=== PATIENT | female | born 1950 | race Caucasian/White ===

== ENCOUNTER 2016-08-11 01:47 | Inpatient (IN) | payer OTHER ==
[~2016-08-11] VITALS: Ht 167.6 cm; Wt 87.5 kg
--- NOTE | 2016-08-11 02:00 | NUR ---
PATIENT WALKED INTO ER C/O RIGHT BREAST PAIN AND REDNESS THAT STARTED 2300 YESTERDAY.
[2016-08-11] MEDS ORDERED: IRBE150T30 PO (02:07)
[2016-08-11] MEDS ORDERED: DULA1.5P SQ (02:07)
[2016-08-11] MEDS ORDERED: INSU100V7 SQ (02:07)
[2016-08-11] MEDS ORDERED: ATOR10TA33 PO (02:07)
[2016-08-11] MEDS ORDERED: METO50TA7 PO (02:07)
[2016-08-11] MEDS ORDERED: LETR2.5T7 PO (02:07)
[2016-08-11] MEDS ORDERED: METF500T4 PO (02:07)
[2016-08-11] MEDS ORDERED: VANCOMYCIN IV 1,000 MG in IV DEXTROSE 5% 250 ML IV ONE (02:30)
[2016-08-11 02:41] LABS: BASOPHILS % (AUTO) 0.4 % (0.0-2.0); EOSINOPHILS # (AUTO) 0.1 K/uL (0.0-0.7); EOSINOPHILS % (AUTO) 1.2 % (0.0-7.0); HEMATOCRIT 37.8 % (37-47); HEMOGLOBIN 12.9 G/DL (12.0-16.0); LYMPHOCYTES # (AUTO) 0.6 K/UL (0.8-4.8); LYMPHOCYTES % (AUTO) 5.4 % (20.5-51.5); MEAN CORPUSCULAR HEMOGLOBIN 28.5 UUG (27.0-31.0); MEAN CORPUSCULAR HGB CONC 34 g/dL (32.0-37.0); MEAN CORPUSCULAR VOLUME 83.8 FL (81.0-99.0); MONOCYTES # (AUTO) 0.7 K/UL (0.1-1.30); MONOCYTES % (AUTO) 5.9 % (0.0-11.0); NEUTROPHILS # (AUTO) 9.7 K/UL (1.8-8.9); NEUTROPHILS % (AUTO) 87.1 % (38.5-71.5); PLATELET COUNT (AUTO) 191 K/UL (150-450); RED BLOOD CELL COUNT(AUTO) 4.51 MIL/UL (4.2-5.4); WHITE BLOOD COUNT (AUTO) 11.1 K/UL (4.0-11.2)
[2016-08-11 02:47] LABS: BILIRUBIN,DIRECT 0.2 mg/dL (0.0-0.2); BILIRUBIN,TOTAL 0.9 mg/dL (0.2-1.0); CREATININE 0.8 mg/dL (0.6-1.3); POTASSIUM 3.7 mmol/L (3.5-5.1); TOTAL PROTEIN, SERUM 7.1 g/dL (6.4-8.2)
[2016-08-11] MEDS ORDERED: VANCOMYCIN IV 200 ML ONE (02:48)
--- NOTE | 2016-08-11 04:00 | NUR ---
PATIENT SLEEPING WITH NO DISTRESS NOTED
[2016-08-11] MEDS ORDERED: MAGNESIUM HYDROXIDE 30 ML LIQUID UDC PO PRN (04:15)
[2016-08-11] MEDS ORDERED: TEMAZEPAM 7.5 MG CAPSULE PO PRN (04:15)
[2016-08-11] MEDS ORDERED: ONDANSETRON 4 MG/2 ML VIAL IV PRN (04:15)
[2016-08-11] MEDS ORDERED: MORPHINE SULFATE 2 MG/1 ML DISP.SYRIN IV PRN (04:15)
[2016-08-11] MEDS ORDERED: HYDROCODONE/APAP 5-325MG TABLET PO PRN (04:15)
[2016-08-11] MEDS ORDERED: DEXTROSE 50% 50 ML DISP.SYRIN IV PRN (04:30)
[2016-08-11] MEDS ORDERED: INSULIN REGULAR, HUMAN 300 UNITS/3 ML VIAL SQ PRN (04:30)
[2016-08-11 05:20] VITALS: BP 138/77
--- NOTE | 2016-08-11 05:20 | NUR ---
TRANSFERED TO 2ND FLOOR VIA WHEELCHAIR
[2016-08-11] MEDS: BLOOD SUGAR DIAGNOSTIC 1 EACH STRIP VI SCH ×4 (07:30→20:37)
--- NOTE | 2016-08-11 08:00 | NUR ---
Received this admission from previous shift, with the chief complaint of right breast redness, diagnosis of cellulitis right breast. Awake, alert, oriented x 4, able to move all extremities. Noted redness and warm of right breast. IVF started on right forearm.
[2016-08-11] MEDS: PANTOPRAZOLE SODIUM 40 MG TABLET.DR PO SCH (08:47)
[2016-08-11] MEDS: METFORMIN HCL 500 MG TABLET PO SCH ×2 (08:48→17:27)
[2016-08-11] MEDS: METOPROLOL SUCCINATE XL 50 MG TAB.SR.24H PO SCH (08:49)
[2016-08-11] MEDS: IV NS 1000 ML 1,000 ML IV PRN (08:49)
[2016-08-11] MEDS: ACETAMINOPHEN 325 MG TABLET PO PRN (08:59)
[2016-08-11] MEDS ORDERED: LETROZOLE 2.5 MG PO SCH (09:00)
[2016-08-11] MEDS: INSULIN REGULAR, HUMAN 300 UNIT/3 ML VIAL SQ PRN ×2 (09:05→12:32)
[2016-08-11] MEDS: VANCOMYCIN IV 1,250 MG in IV DEXTROSE 5% 500 ML IV SCH ×2 (09:07→22:00)
[2016-08-11 11:40] VITALS: BP 124/77
--- NOTE | 2016-08-11 12:00 | NUR ---
Blood sugar 162, Insulin sliding scale given as ordered.
[2016-08-11] MEDS: LETROZOLE 2.5 MG PO SCH (15:29)
[2016-08-11] MEDS: IRBESARTAN 150 MG PO SCH (15:29)
--- NOTE | 2016-08-11 15:34 | NUR ---
lactic acid 2.3, Susan [employer] informed with orders. Levaquin IV started
--- NOTE | 2016-08-11 15:55 | NUR ---
Clinical Pharmacy Note: Vancomycin Pharmacy to Dose Subjective: To start vancomycin in this 66 yr old female for indication of cellulitis Objective: weight 87kg height 167cm BUN 12Scr 0.8Wbc 11.1Temp 98.7 Received one dose of 1gm at 0251 on 08/11 overnight Assessment/Plan As renal function is ok, will start scheduled dose of vancomycin 1250mg q14hr, expected trough 16.49. Will draw trough before 4th scheduled dose (not ordered yet). Will monitor renal function and adjust if were to change, will continue to monitor
[2016-08-11] MEDS: LEVOFLOXACIN 500 MG/D5W 500 MG in PREMIXED 1 EACH IV SCH (16:05)
[2016-08-11 16:09] VITALS: BP 138/75
--- NOTE | 2016-08-11 17:42 | NUR ---
Dr. Gustafson for ID seen and examined patient. Right breast redness marked with pen. photos taken
[2016-08-11 20:00] VITALS: BP 127/74
[2016-08-11] MEDS: ATORVASTATIN 10 MG TABLET PO SCH (20:37)
[2016-08-11] MEDS: INSULIN DETEMIR 300 UNIT/3 ML CARTRIDGE SQ SCH (20:38)
[2016-08-11] MEDS ORDERED: INSULIN GLARGINE,HUM 300 UNITS/3 ML CARTRIDGE SQ SCH (21:00)
[2016-08-12] MEDS: IV NS 1000 ML 1,000 ML IV PRN ×2 (01:40→11:27)
--- NOTE | 2016-08-12 03:00 | NUR ---
Right forearm IV line infiltrated. Placed a new line in her left hand w/ [id number]. IVF maintained.
[2016-08-12 04:55] VITALS: BP 121/66
[2016-08-12] MEDS: PANTOPRAZOLE SODIUM 40 MG TABLET.DR PO SCH (05:48)
[2016-08-12] MEDS: BLOOD SUGAR DIAGNOSTIC 1 EACH STRIP VI SCH ×4 (05:48→20:54)
--- NOTE | 2016-08-12 06:11 | NUR ---
Redness on breast site slightly fading. Denies pain or itchinedd. Fairly rested, no acutre resp distress. Assisted w/ all needs.
[2016-08-12 06:55] LABS: BASOPHILS % (AUTO) 0.5 % (0.0-2.0); EOSINOPHILS # (AUTO) 0.1 K/uL (0.0-0.7); EOSINOPHILS % (AUTO) 3.1 % (0.0-7.0); HEMOGLOBIN 11.6 G/DL (12.0-16.0); LYMPHOCYTES # (AUTO) 0.9 K/UL (0.8-4.8); MEAN CORPUSCULAR HEMOGLOBIN 29.4 UUG (27.0-31.0); MEAN CORPUSCULAR HGB CONC 35 g/dL (32.0-37.0); MEAN CORPUSCULAR VOLUME 83.9 FL (81.0-99.0); MONOCYTES # (AUTO) 0.5 K/UL (0.1-1.30); MONOCYTES % (AUTO) 10.1 % (0.0-11.0); NEUTROPHILS # (AUTO) 3.2 K/UL (1.8-8.9); NEUTROPHILS % (AUTO) 66.3 % (38.5-71.5); PLATELET COUNT (AUTO) 164 K/UL (150-450)
[2016-08-12 07:07] LABS: BILIRUBIN,TOTAL 1.2 mg/dL (0.2-1.0); CREATININE 0.7 mg/dL (0.6-1.3); PHOSPHOROUS 3.5 mg/dL (2.5-4.9); POTASSIUM 3.7 mmol/L (3.5-5.1); TOTAL PROTEIN, SERUM 6.6 g/dL (6.4-8.2)
[2016-08-12 07:11] LABS: THYROID STIMULATING HORMONE 1.765 mIU/mL (0.358-3.740)
[2016-08-12 07:20] LABS: MAGNESIUM 1.2 mg/dL (1.8-2.4)
[2016-08-12 07:24] LABS: RED BLOOD CELL COUNT(AUTO) 3.95 MIL/UL (4.2-5.4); WHITE BLOOD COUNT (AUTO) 4.8 K/UL (4.0-11.2)
[2016-08-12 07:25] LABS: HEMATOCRIT 33.1 % (37-47)
--- NOTE | 2016-08-12 08:00 | NUR ---
AWAKE ALERT COOPERATE WELL NO SOB OR PAIN EAT BREAKFAST MOD AMT CONTINUE IVF RESTING QUIET WITH CALL LIGHT IN REACH AND INSTRUCTION TO CALL WHEN NEED
[2016-08-12] MEDS: METFORMIN HCL 500 MG TABLET PO SCH (08:21)
[2016-08-12] MEDS: METOPROLOL SUCCINATE XL 50 MG TAB.SR.24H PO SCH (08:21)
[2016-08-12] MEDS: LETROZOLE 2.5 MG PO SCH (08:21)
[2016-08-12] MEDS: IRBESARTAN 150 MG PO SCH (08:22)
[2016-08-12] MEDS: INSULIN REGULAR, HUMAN 300 UNIT/3 ML VIAL SQ PRN ×3 (08:24→16:47)
[2016-08-12] MEDS: Z GUARD REMEDY PASTE 57 GM TUBE TOP PRN (08:24)
[2016-08-12] MEDS: MAGNESIUM SULFATE/D5W 100 ML IV SCH ×3 (10:13→12:33)
[2016-08-12 11:32] VITALS: BP 123/77
[2016-08-12] MEDS: VANCOMYCIN IV 1,250 MG in IV DEXTROSE 5% 500 ML IV SCH (13:44)
[2016-08-12 14:05] LABS: *BILIRUBIN,URIN NEGATIVE (NEGATIVE); *BLOOD, URINE NEGATIVE (NEGATIVE); *CLARITY,URINE CLEAR (CLEAR); *COLOR,URINE LIGHT YELLOW (YELLOW); *KETONES,URINE NEGATIVE (NEGATIVE); *PROTEIN,URINE NEGATIVE (NEGATIVE); *UROBILINOGEN,URINE 0.2 E.U./dl (NORMAL); LEUKOCYTE ESTERASE ,URINE NEGATIVE (NEGATIVE); NITRITE, URINE NEGATIVE (NEGATIVE); UGLUCOSE NEGATIVE (NEGATIVE)
[2016-08-12 14:18] LABS: BACTERIA,URINE NONE SEEN /HPF (NONE SEEN); RBC,URINE NONE SEEN /HPF (0-3); SQUAMOUS EPITHELIAL CELL,UR FEW /HPF (NONE SEEN); WBC,URINE 0-3 /HPF (0-3)
--- NOTE | 2016-08-12 14:25 | NUR ---
Clinical Pharmacy Note: Vancomycin Pharmacy to Dose Subjective: To continue vancomycin in this 66 yr old female for indication of cellulitis Objective: weight 87kg height 167cm BUN 5Scr 0.7Wbc 4.8Temp 97.7 Assessment/Plan Will continue scheduled dose of vancomycin 1250mg q14hr, expected trough 16.49. Will draw trough before 4th scheduled dose (Ordered and due at 0300 on 08/13). RN endorsed to hold dose if trough >20. Will check level in am and adjust as appropriate. Will monitor renal function and adjust if were to change, will continue to monitor
[2016-08-12 15:42] VITALS: BP 134/74
[2016-08-12] MEDS: LEVOFLOXACIN 500 MG/D5W 500 MG in PREMIXED 1 EACH IV SCH (16:37)
[2016-08-12] MEDS: glipiZIDE 5 MG TABLET PO SCH (16:49)
--- NOTE | 2016-08-12 17:30 | NUR ---
STABLE HEMODYNAMIC STATUS PAIN UNDER CONTROL SAFETY MEASURE PROVIDED CALL LIGHT WITHIN REACH
[2016-08-12 19:19] LABS: *OCCULT BLOOD STOOL NEGATIVE (NEGATIVE)
--- NOTE | 2016-08-12 19:20 | NUR ---
Bedside reporting with CHANDLER Ritter. Received patient awake, not in distress, denies pain at this time. Family at bedside. IVF infusing on LH, no s/s of infiltration noted. Safety measure and fall precaution maintained. Continue plan of care.
[2016-08-12 20:00] VITALS: BP 143/77
[2016-08-12] MEDS: LACTOBACILLUS RHAMNOSUS GG 1 EACH CAPSULE PO SCH (20:50)
[2016-08-12] MEDS: ATORVASTATIN 10 MG TABLET PO SCH (20:50)
[2016-08-12] MEDS: INSULIN DETEMIR 300 UNIT/3 ML CARTRIDGE SQ SCH (20:56)
[2016-08-13] MEDS: IV NS 1000 ML 1,000 ML IV PRN ×2 (03:03→21:55)
[2016-08-13] MEDS: VANCOMYCIN IV 1,250 MG in IV DEXTROSE 5% 500 ML IV SCH (03:59)
[2016-08-13 05:32] VITALS: BP 146/87
--- NOTE | 2016-08-13 06:00 | NUR ---
Patient reported that she was not able to sleep the whole night due to screaming patient next door. Charge nurse aware. Continue on ATB IVPB as ordered without s/s of adverse reaction noted. All needs attended and met. No significant event reported all night. No complaint of pain presented throughout the shift. Continue care as planned.
[2016-08-13] MEDS: BLOOD SUGAR DIAGNOSTIC 1 EACH STRIP VI SCH ×4 (06:15→21:54)
[2016-08-13] MEDS: glipiZIDE 5 MG TABLET PO SCH ×2 (06:15→16:21)
[2016-08-13] MEDS: PANTOPRAZOLE SODIUM 40 MG TABLET.DR PO SCH (06:16)
[2016-08-13 07:09] LABS: BASOPHILS % (AUTO) 0.6 % (0.0-2.0); EOSINOPHILS # (AUTO) 0.1 K/uL (0.0-0.7); EOSINOPHILS % (AUTO) 3.1 % (0.0-7.0); HEMOGLOBIN 11.6 G/DL (12.0-16.0); LYMPHOCYTES % (AUTO) 24.3 % (20.5-51.5); MEAN CORPUSCULAR HEMOGLOBIN 28.6 UUG (27.0-31.0); MEAN CORPUSCULAR HGB CONC 34 g/dL (32.0-37.0); MEAN CORPUSCULAR VOLUME 84.1 FL (81.0-99.0); MONOCYTES # (AUTO) 0.4 K/UL (0.1-1.30); MONOCYTES % (AUTO) 9.5 % (0.0-11.0); NEUTROPHILS # (AUTO) 2.8 K/UL (1.8-8.9); NEUTROPHILS % (AUTO) 62.5 % (38.5-71.5); PLATELET COUNT (AUTO) 178 K/UL (150-450); RED BLOOD CELL COUNT(AUTO) 4.04 MIL/UL (4.2-5.4); WHITE BLOOD COUNT (AUTO) 4.3 K/UL (4.0-11.2)
[2016-08-13 07:18] LABS: BILIRUBIN,TOTAL 1.1 mg/dL (0.2-1.0); CREATININE 0.7 mg/dL (0.6-1.3); MAGNESIUM 1.5 mg/dL (1.8-2.4); PHOSPHOROUS 3.4 mg/dL (2.5-4.9); POTASSIUM 3.7 mmol/L (3.5-5.1); TOTAL PROTEIN, SERUM 6.6 g/dL (6.4-8.2)
[2016-08-13] MEDS: INSULIN REGULAR, HUMAN 300 UNIT/3 ML VIAL SQ PRN ×3 (08:11→17:43)
[2016-08-13] MEDS: LACTOBACILLUS RHAMNOSUS GG 1 EACH CAPSULE PO SCH ×2 (08:13→21:51)
[2016-08-13] MEDS: IRBESARTAN 150 MG PO SCH (08:13)
[2016-08-13] MEDS: LETROZOLE 2.5 MG PO SCH (08:13)
[2016-08-13] MEDS: METOPROLOL SUCCINATE XL 50 MG TAB.SR.24H PO SCH (08:19)
[2016-08-13] MEDS: MAGNESIUM SULFATE/D5W 100 ML IV SCH ×2 (10:45→10:46)
[2016-08-13] MEDS: ACETAMINOPHEN 325 MG TABLET PO PRN (11:00)
[2016-08-13 12:10] VITALS: BP 120/65
[2016-08-13] MEDS: LEVOFLOXACIN 500 MG/D5W 500 MG in PREMIXED 1 EACH IV SCH (16:20)
[2016-08-13] MEDS: VANCOMYCIN IV 1,500 MG in IV NORMAL SALINE 500 ML IV SCH (16:20)
[2016-08-13 16:30] VITALS: BP 120/67
--- NOTE | 2016-08-13 16:48 | NUR ---
Clinical Pharmacy Note: Vancomycin Pharmacy to Dose Subjective: To continue vancomycin in this 66 yr old female for indication of cellulitis Objective: weight 87kg height 167cm BUN 9Scr 0.7Wbc 4.3Temp 97.7 Vancomycin trough 6.1 Assessment/Plan Since vancomycin trough is under 15, will increase dose to 1500mg IV every 9 hrs(first dose today at 1530) and draw trough by 4th dose(not ordered yet) for expected trough around 16. Will monitor daily.
--- NOTE | 2016-08-13 19:25 | NUR ---
NO CHANGES NOTED. PT IS LAYING IN BED COMFORTABLY. NO S/S OF RESPIRATORY DISTRESS NOTED. NO PAIN NOTED. ALL SAFETY NEEDS ARE MET.
[2016-08-13 20:00] VITALS: BP 112/63
[2016-08-13] MEDS: ATORVASTATIN 10 MG TABLET PO SCH (21:51)
[2016-08-13] MEDS: INSULIN DETEMIR 300 UNIT/3 ML CARTRIDGE SQ SCH (21:56)
[2016-08-13 22:00] VITALS: BP 112/63
[2016-08-14] MEDS: VANCOMYCIN IV 1,500 MG in IV NORMAL SALINE 500 ML IV SCH ×2 (00:02→10:22)
[2016-08-14 04:00] VITALS: BP 128/74
[2016-08-14 05:01] VITALS: BP 128/74
[2016-08-14] MEDS: PANTOPRAZOLE SODIUM 40 MG TABLET.DR PO SCH (06:56)
[2016-08-14 07:14] LABS: BILIRUBIN,TOTAL 0.7 mg/dL (0.2-1.0); CREATININE 0.7 mg/dL (0.6-1.3); MAGNESIUM 1.6 mg/dL (1.8-2.4); PHOSPHOROUS 3.7 mg/dL (2.5-4.9); TOTAL PROTEIN, SERUM 6.5 g/dL (6.4-8.2)
[2016-08-14 07:15] LABS: BASOPHILS % (AUTO) 0.9 % (0.0-2.0); EOSINOPHILS # (AUTO) 0.2 K/uL (0.0-0.7); EOSINOPHILS % (AUTO) 4.3 % (0.0-7.0); HEMATOCRIT 33.5 % (37-47); HEMOGLOBIN 11.6 G/DL (12.0-16.0); LYMPHOCYTES # (AUTO) 1.1 K/UL (0.8-4.8); LYMPHOCYTES % (AUTO) 26.2 % (20.5-51.5); MEAN CORPUSCULAR HEMOGLOBIN 28.9 UUG (27.0-31.0); MEAN CORPUSCULAR HGB CONC 35 g/dL (32.0-37.0); MEAN CORPUSCULAR VOLUME 83.5 FL (81.0-99.0); MONOCYTES # (AUTO) 0.4 K/UL (0.1-1.30); NEUTROPHILS # (AUTO) 2.4 K/UL (1.8-8.9); NEUTROPHILS % (AUTO) 59.6 % (38.5-71.5); PLATELET COUNT (AUTO) 174 K/UL (150-450); RED BLOOD CELL COUNT(AUTO) 4.01 MIL/UL (4.2-5.4); WHITE BLOOD COUNT (AUTO) 4.1 K/UL (4.0-11.2)
[2016-08-14] MEDS: glipiZIDE 5 MG TABLET PO SCH (08:23)
[2016-08-14] MEDS: LACTOBACILLUS RHAMNOSUS GG 1 EACH CAPSULE PO SCH (08:23)
[2016-08-14] MEDS: Z GUARD REMEDY PASTE 57 GM TUBE TOP PRN (08:24)
[2016-08-14] MEDS: IRBESARTAN 150 MG PO SCH (08:24)
[2016-08-14] MEDS: METOPROLOL SUCCINATE XL 50 MG TAB.SR.24H PO SCH (08:24)
[2016-08-14] MEDS: LETROZOLE 2.5 MG PO SCH (08:24)
[2016-08-14] MEDS: BLOOD SUGAR DIAGNOSTIC 1 EACH STRIP VI SCH ×2 (08:25→12:33)
--- NOTE | 2016-08-14 08:30 | NUR ---
AWAKE ALERT COOPERATE WELL NO SOB OR PAIN IV INFILTRATE CHANGE TO RT HAND EAT BREAKFAST MOD AMT NO N/V CALL LIGHT WITHIN REACH
[2016-08-14] MEDS ORDERED: MAGNESIUM SULFATE/D5W 100 ML IV SCH (10:00)
[2016-08-14] MEDS ORDERED: CEPHALEXIN MONOHYDRATE 500 MG CAPSULE PO SCH ×2 (11:00→11:30)
--- NOTE | 2016-08-14 11:00 | NUR ---
CARD FOLDER LOUISE OVERTON SEEN PATIENT AND ORDER IN CHART
[2016-08-14 11:57] VITALS: BP 147/64
--- NOTE | 2016-08-14 12:52 | NUR ---
The patient will be discharged today back to her son's home per Susan Vail NP. She and her family are aware of the discharge and in agreement. Her son will be picking her up via private car. She resides in [place] and is visiting her son for a vacation. She will follow-up with her PCP in [place]. Her RN, Stone, is aware of her discharge plan.
--- NOTE | 2016-08-14 13:00 | NUR ---
D/C INSTRUCTION REGARDING TO F/U WITH OWN PMD CALL FOR APPOINTMENT CONTINUE HOME MEDICINE ORDER AND EDUCATION PK GAVE ,VERBALIZES UNDERSTAND AND SIGNS D/C SHEET HL WAS D/C PRIOR DISCHARGE HOME TODAY
[2016-08-14] MEDS ORDERED: CEPH500C2 PO (13:01)
[2016-08-14] MEDS ORDERED: LACT1CAP57 PO (13:01)
[2016-08-14] MEDS ORDERED: ACET325T53 PO (13:01)
[2016-08-14] MEDS ORDERED: GLIP5TAB13 PO (13:01)
--- NOTE | 2016-08-14 14:00 | NUR ---
ARLETTE WAS INSTRUCTION ON HOME MEDICINE AND DR LOBO ,VERBALIZES UNDERSTAND
--- NOTE | 2016-08-14 15:40 | NUR ---
D/C HOME WITH HER BELONGING CONDITION STABLE NO PAIN OR SOB ACCOMPANIES WITH FAMILY
== END 2016-08-14 15:40 | disposition home or self-care (01) | DRG 872 ==
LOC: ER 01:49 → MED 05:07
PROVIDERS: ADMIT Family Medicine; ATTEND Nurse Practitioner Acute Care
DX: A41.9 Sepsis, unspecified organism (principal); E87.2 Acidosis; N61.0 Mastitis without abscess; E11.65 Type 2 diabetes mellitus with hyperglycemia; E78.5 Hyperlipidemia, unspecified; I10 Essential (primary) hypertension; Z90.11 Acquired absence of right breast and nipple; Z82.0 Family history of epilepsy and other diseases of the nervous system; Z85.3 Personal history of malignant neoplasm of breast; Z79.899 Other long term (current) drug therapy; Z87.442 Personal history of urinary calculi; Z88.0 Allergy status to penicillin; E83.42 Hypomagnesemia; Z92.3 Personal history of irradiation; Z90.49 Acquired absence of other specified parts of digestive tract; D64.9 Anemia, unspecified; Z82.3 Family history of stroke; Z84.89 Family history of other specified conditions; Z87.440 Personal history of urinary (tract) infections; T38.3X5A Adverse effect of insulin and oral hypoglycemic [antidiabetic] drugs, initial encounter; Y92.009 Unspecified place in unspecified non-institutional (private) residence as the place of occurrence of the external cause
CPT/HCPCS: 36415; 83605; 83735; 84100; 84443; 85025; 85610; 87040; 87086; A4663; J1815; J1956; J3370; J3475; J7030; J7040; J7060